=== PATIENT | male | born 1980 | race Caucasian/White ===

== ENCOUNTER 2019-12-31 22:49 | Emergency (ER) | payer SELFPAY ==
[~2019-12-31] VITALS: Ht 188 cm; Wt 112.9 kg
[2019-12-31 22:51] VITALS: BP 135/77
--- NOTE | 2019-12-31 23:31 | NUR ---
PT NOT IN LOBBY WHEN CALLED FOR ROOM
--- NOTE | 2019-12-31 23:54 | NUR ---
PT NIL AT THIS TIME WHEN CALLED FOR ROOM
--- NOTE | 2020-01-01 00:40 | NUR ---
PT NOT IN LOBBY WHEN CALLED FOR ROOM.
== END 2020-01-01 00:41 | disposition left against medical advice (07) ==
LOC: ED 01-01 00:35
DX: F09 Unspecified mental disorder due to known physiological condition (principal)
CPT/HCPCS: 99281

== ENCOUNTER 2020-01-01 12:41 | Inpatient (IN) | payer SELFPAY ==
[~2020-01-01] VITALS: Ht 188 cm; Wt 107.8 kg
--- NOTE | 2020-01-01 13:16 | NUR ---
PT WAS BROUGHT IN LAST NIGHT BY [facility]. PT WAS COOPERATIVE, CALM, AND DENIED SI/HI. PT ELOPED LATE LAST NIGHT. PT WAS FOUND TODAY BY [facility] DRINKING OUT OF A [employer] ON [address]. PT REPORTS THAT HE HAS BEEN HAVING "ACID VISIONS TODAY THAT HAVE BEEN BIBLICAL". PT ONCE AGAIN IS DENYING SI OR HI. PT STATES HE STARTED TAKING RISPERIDOL BUT DOESNT THINK IT IS HELPING. HE WANTS TO BE HELPED. PT HAS BEEN PLACED IN A PSYCH ROOM AND HIS BELONGINGS HAVE BEEN PLACED IN A PT BAG AND PLACED IN THE SECURITY LOCKER. LABS DRAWN
[2020-01-01 13:25] LABS: MEAN CORPUSCULAR HEMOGLOBIN 30.9 pg (27.5-34.5); MEAN CORPUSCULAR HGB CONC 33.2 g/dL (33.2-36.2); MEAN CORPUSCULAR VOLUME 92.9 fL (81-97); MEAN PLATELET VOLUME 8.2 fL (7.4-10.4); PLATELET COUNT 263 x10^3/uL (130-400); RED BLOOD COUNT 5.23 x10^6/uL (4.38-5.82); RED CELL DISTRIBUTION WIDTH 12.4 % (9.4-14.8)
[2020-01-01 13:39] LABS: ALANINE AMINOTRANSFERASE 46 U/L (12-78); ALBUMIN 4.4 g/dL (3.4-5.0); ANION GAP 14 mmol/L (5-15); CHLORIDE 103 mmol/L (98-107); CREATININE 1.28 mg/dL (0.7-1.3); SALICYLATE LEVEL 3.8 mg/dL (2.8-20.0)
[2020-01-01 13:45] LABS: ALKALINE PHOSPHATASE 74 U/L (45-117); BILIRUBIN,TOTAL 1.3 mg/dL (0.2-1.0); TOTAL PROTEIN 8.6 g/dL (6.4-8.2)
[2020-01-01 13:48] LABS: AMPHETAMINE SCREEN, URINE Negative (Negative); BARBITURATE SCREEN, URINE Negative (Negative); BENZODIAZEPINE SCREEN, URINE Negative (Negative); CANNABINOID SCREEN, URINE Positive (Negative); COCAINE SCREEN, URINE Negative (Negative); METHADONE SCREEN, URINE Negative (Negative); OPIATE SCREEN, URINE Negative (Negative)
[2020-01-01 13:55] LABS: BASOPHILS # (AUTO) 0.08 x10^3/uL (0-0.1); BASOPHILS % (AUTO) 0 % (0-1); EOSINOPHILS % (AUTO) 0 % (1-7); LYMPHOCYTES # (AUTO) 1.13 x10^3/uL (1-3.4); LYMPHOCYTES % (AUTO) 6 % (22-44); MD SCAN; MONOCYTES # (AUTO) 1.26 x10^3/uL (0.2-0.8); MONOCYTES % (AUTO) 7 % (2-9); NEUTROPHILS # (AUTO) 15.83 x10^3/uL (1.8-6.8); NEUTROPHILS % (AUTO) 87 % (42-75)
[2020-01-01] MEDS: OLANZAPINE 5 MG TABLET PO SCH ×2 (14:00→21:15)
[2020-01-01] MEDS ORDERED: LORazepam 1MG TABLET PO ONE (14:00)
--- NOTE | 2020-01-01 14:03 | NUR ---
MEAL TRAY ORDERED. GIVEN WATER, SITTER PRESENT
[2020-01-01] MEDS ORDERED: LORazepam 1MG TABLET ONE ×2 (14:05→23:08)
[2020-01-01] MEDS ORDERED: OLANZAPINE 5 MG TABLET ONE (14:05)
[2020-01-01] MEDS ORDERED: ZIPRASIDONE 20 MG INJ IM ONE ×2 (14:13→14:30)
--- NOTE | 2020-01-01 14:20 | NUR ---
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 PT NOT AGREEING TO STAY IN ROOM, STATES HE IS LEAVING. PT MADE AWARE HE IS ON A HOLD AND NOT ALLOWED TO LEAVE. PT REFUSED, RAN OUT TO AMBULANCE BAY, SECURITY ASSISTED TO PT BACK TO ROOM. PT STILL COMBATIVE, RESISTING, AND NOT COOPERATIVE, UNSAFE FOR STAFF AND HIMSELF. [address] RN MEDICATE W 20 MG GEODON PT NOTED TO HAVE BLISTERS ON FEET FROM WALKING ALOT PRIOR TO COMING TO ER. SECURITY NOTED PT ACQUIRED SMALL LACERATION TO RIGHT WRIST FROM BEING COMBATIVE AND PUT IN RESTRAINTS. CMS INTACT.
[2020-01-01 14:58] LABS: MICROSCOPIC INDICATED
--- NOTE | 2020-01-01 15:03 | NUR ---
PT IS CALM, RESTING ON GURNEY W RESTRAINTS. GIVEN WATER. PT AGREES TO STAY CALM TO REMOVE 2/4 RESTRAINTS
--- NOTE | 2020-01-01 15:05 | NUR ---
LEFT ARM AND RIGHT LEG RELEASED OF RESTRAINTS. PT GIVEN WATER AND FRUIT TRAY. PT NOW AGREEABLE TO COOPERATE
--- NOTE | 2020-01-01 16:04 | NUR ---
ALL RESTRAINTS REMOVED, PT SLEEPING, SITTER PRESENT
[2020-01-01] MEDS ORDERED: LACTATED RINGERS 1,000 ML IVBOLUS ONE (17:00)
--- NOTE | 2020-01-01 17:15 | NUR ---
PT RESTING, IVF PER ORDERS. SITTER PRESENT
[2020-01-01] MEDS ORDERED: DOCUSATE 100 MG CAPSULE PO PRN (18:00)
[2020-01-01] MEDS ORDERED: ONDANSETRON 2MG/ML, 2ML IVPush PRN (18:00)
[2020-01-01] MEDS ORDERED: THIAMINE 200 MG in SODIUM CHLORIDE 0.9% 50 ML IV ONE (18:00)
[2020-01-01] MEDS: SODIUM CHLORIDE 0.9% 1,000 ML IV SCH (18:21)
[2020-01-01 19:15] LABS: C-REACTIVE PROTEIN, QUANT 0.54 mg/dL (0.02-0.49)
[2020-01-01 19:25] VITALS: BP 110/72
[2020-01-01 19:52] LABS: HCT (SEDRATE) 42.6 % (39.2-51.8)
[2020-01-01] MEDS: LORazepam 1MG TABLET PO PRN (23:10)
[2020-01-02] MEDS: SODIUM CHLORIDE 0.9% 1,000 ML IV SCH ×3 (00:06→17:02)
[2020-01-02 03:18] VITALS: BP 143/78
[2020-01-02 06:58] VITALS: BP 135/79
[2020-01-02] MEDS: OLANZAPINE 5 MG TABLET PO SCH ×3 (08:34→20:16)
[2020-01-02] MEDS: THIAMINE 100 MG in SODIUM CHLORIDE 0.9% 50 ML IV SCH (10:00)
[2020-01-02] MEDS: LORazepam 2 MG/ML, 1ML IVPush PRN ×3 (12:04→20:16)
[2020-01-02 14:00] VITALS: BP 128/78
[2020-01-02 14:29] LABS: MEAN CORPUSCULAR HEMOGLOBIN 31.6 pg (27.5-34.5); MEAN CORPUSCULAR HGB CONC 34.4 g/dL (33.2-36.2); MEAN CORPUSCULAR VOLUME 91.9 fL (81-97); MEAN PLATELET VOLUME 8.1 fL (7.4-10.4); PLATELET COUNT 207 x10^3/uL (130-400); RED BLOOD COUNT 4.61 x10^6/uL (4.38-5.82); RED CELL DISTRIBUTION WIDTH 12.5 % (9.4-14.8)
[2020-01-02 14:41] LABS: ALBUMIN 3.9 g/dL (3.4-5.0); CALCIUM 8.4 mg/dL (8.5-10.1); CHLORIDE 105 mmol/L (98-107)
[2020-01-02 14:51] LABS: BASOPHILS # (AUTO) 0.03 x10^3/uL (0-0.1); BASOPHILS % (AUTO) 0 % (0-1); EOSINOPHILS # (AUTO) 0.06 x10^3/uL (0-0.4); EOSINOPHILS % (AUTO) 1 % (1-7); LYMPHOCYTES # (AUTO) 2.03 x10^3/uL (1-3.4); LYMPHOCYTES % (AUTO) 21 % (22-44); MD SCAN; MONOCYTES % (AUTO) 10 % (2-9); NEUTROPHILS # (AUTO) 6.75 x10^3/uL (1.8-6.8); NEUTROPHILS % (AUTO) 68 % (42-75)
[2020-01-02 16:08] LABS: ALANINE AMINOTRANSFERASE 56 U/L (12-78); ALKALINE PHOSPHATASE 63 U/L (45-117); BILIRUBIN,TOTAL 0.9 mg/dL (0.2-1.0); CREATINE KINASE, TOTAL 3171 U/L (39-308); CREATININE 0.87 mg/dL (0.7-1.3); TOTAL PROTEIN 7.2 g/dL (6.4-8.2)
[2020-01-02 16:19] LABS: ANION GAP 11 mmol/L (5-15)
[2020-01-02] MEDS ORDERED: POTASSIUM CHLORIDE 40 MEQ in SODIUM CHLORIDE 0.9% 500 ML IV ONE (17:30)
[2020-01-02 20:06] VITALS: BP 146/91
[2020-01-03] MEDS: LORazepam 2 MG/ML, 1ML IVPush PRN ×2 (00:57→11:12)
[2020-01-03 00:58] VITALS: BP 132/77
[2020-01-03] MEDS: SODIUM CHLORIDE 0.9% 1,000 ML IV SCH ×3 (04:38→17:18)
[2020-01-03] MEDS: LORazepam 1MG TABLET PO PRN ×3 (05:57→16:30)
[2020-01-03 06:49] LABS: BASOPHILS # (AUTO) 0.04 x10^3/uL (0-0.1); BASOPHILS % (AUTO) 1 % (0-1); EOSINOPHILS # (AUTO) 0.07 x10^3/uL (0-0.4); EOSINOPHILS % (AUTO) 1 % (1-7); LYMPHOCYTES % (AUTO) 25 % (22-44); MD NO; MEAN CORPUSCULAR HEMOGLOBIN 31.3 pg (27.5-34.5); MEAN CORPUSCULAR HGB CONC 34.1 g/dL (33.2-36.2); MEAN CORPUSCULAR VOLUME 91.9 fL (81-97); MEAN PLATELET VOLUME 8.2 fL (7.4-10.4); MONOCYTES # (AUTO) 0.67 x10^3/uL (0.2-0.8); MONOCYTES % (AUTO) 9 % (2-9); NEUTROPHILS # (AUTO) 4.69 x10^3/uL (1.8-6.8); NEUTROPHILS % (AUTO) 65 % (42-75); PLATELET COUNT 190 x10^3/uL (130-400); RED BLOOD COUNT 4.52 x10^6/uL (4.38-5.82)
[2020-01-03 07:11] VITALS: BP 144/78
[2020-01-03 07:12] LABS: ALBUMIN 3.6 g/dL (3.4-5.0); ANION GAP 6 mmol/L (5-15); CALCIUM 8.4 mg/dL (8.5-10.1); CHLORIDE 108 mmol/L (98-107)
[2020-01-03 07:15] LABS: ALANINE AMINOTRANSFERASE 51 U/L (12-78); ALKALINE PHOSPHATASE 62 U/L (45-117); BILIRUBIN,TOTAL 0.7 mg/dL (0.2-1.0); CREATININE 0.81 mg/dL (0.7-1.3); TOTAL PROTEIN 6.8 g/dL (6.4-8.2)
[2020-01-03] MEDS: OLANZAPINE 5 MG TABLET PO SCH (07:44)
[2020-01-03] MEDS: THIAMINE 100 MG in SODIUM CHLORIDE 0.9% 50 ML IV SCH (09:12)
[2020-01-03 13:07] VITALS: BP 133/80
[2020-01-03] MEDS ORDERED: ACETAMINOPHEN 325 MG TABLET PO PRN (15:30)
[2020-01-03 20:02] VITALS: BP 145/81
[2020-01-03] MEDS: OLANZAPINE 10 MG TABLET PO SCH (20:15)
[2020-01-04 00:42] VITALS: BP 130/79
[2020-01-04] MEDS: SODIUM CHLORIDE 0.9% 1,000 ML IV SCH (02:07)
[2020-01-04 07:15] VITALS: BP 131/86
[2020-01-04] MEDS: OLANZAPINE 5 MG TABLET PO SCH (09:20)
[2020-01-04] MEDS: THIAMINE 100 MG in SODIUM CHLORIDE 0.9% 50 ML IV SCH (09:21)
[2020-01-04] MEDS: THIAMINE 100MG TABLET PO SCH ×2 (11:00→20:14)
[2020-01-04 12:35] VITALS: BP 140/90
[2020-01-04] MEDS ORDERED: GADOTERATE 7.5 MMOL/15 ML SYR ONE (13:09)
[2020-01-04 18:56] VITALS: BP 144/81
[2020-01-04] MEDS: ENOXAPARIN 40 MG/0.4 ML SQ SCH (20:14)
[2020-01-04] MEDS: OLANZAPINE 10 MG TABLET PO SCH (20:14)
[2020-01-05 02:06] VITALS: BP 142/88
[2020-01-05] MEDS: THIAMINE 100MG TABLET PO SCH ×2 (08:56→20:20)
[2020-01-05] MEDS: OLANZAPINE 5 MG TABLET PO SCH (08:56)
[2020-01-05 09:42] VITALS: BP 145/104
[2020-01-05 12:31] VITALS: BP 131/90
[2020-01-05 19:04] VITALS: BP 117/81
[2020-01-05] MEDS: ENOXAPARIN 40 MG/0.4 ML SQ SCH ×2 (20:19→20:20)
[2020-01-05] MEDS: OLANZAPINE 10 MG TABLET PO SCH (20:20)
[2020-01-06 01:26] VITALS: BP 131/92
[2020-01-06 08:08] VITALS: BP 125/78
[2020-01-06] MEDS: OLANZAPINE 5 MG TABLET PO SCH (08:55)
[2020-01-06] MEDS: THIAMINE 100MG TABLET PO SCH ×2 (08:55→20:22)
[2020-01-06 14:36] VITALS: BP 127/83
[2020-01-06 19:34] VITALS: BP 120/77
[2020-01-06] MEDS: ENOXAPARIN 40 MG/0.4 ML SQ SCH (20:22)
[2020-01-06] MEDS ORDERED: OLANZAPINE 5 MG TABLET PO SCH (21:00)
[2020-01-07 00:15] VITALS: BP 124/79
[2020-01-07] MEDS: OLANZAPINE 5 MG TABLET PO SCH (07:44)
[2020-01-07] MEDS: THIAMINE 100MG TABLET PO SCH (07:44)
[2020-01-07 08:20] VITALS: BP 129/82
[2020-01-07 13:57] VITALS: BP 106/72
[2020-01-07] MEDS ORDERED: OLAN5TAB9 PO (17:22)
[2020-01-07] MEDS ORDERED: OLAN15TA9 PO (17:23)
== END 2020-01-07 17:48 | disposition home or self-care (01) | DRG 558 ==
LOC: ED 17:52 → EDIP 17:54 → 3N 18:52
PROVIDERS: ADMIT Internal Medicine; ATTEND Internal Medicine
DX: M62.82 Rhabdomyolysis (principal); F23 Brief psychotic disorder; E87.2 Acidosis; F30.9 Manic episode, unspecified; D72.829 Elevated white blood cell count, unspecified; E87.6 Hypokalemia; F12.90 Cannabis use, unspecified, uncomplicated; F17.200 Nicotine dependence, unspecified, uncomplicated; N28.9 Disorder of kidney and ureter, unspecified; Z72.820 Sleep deprivation; Z78.1 Physical restraint status; Z81.8 Family history of other mental and behavioral disorders; Z91.83 Wandering in diseases classified elsewhere; Z88.6 Allergy status to analgesic agent
CPT/HCPCS: 36415; 70450; 70553; 71045; 80053; 80307; 81001; 82550; 82607; 83605; 83735; 84100; 84443; 85025; 85651; 86140; 86592; 87040; 87086; 87806; G0378; J1650; J3411; J3480; J3486; A9575; G0475; J2060; J7030; J7040; J7120